=== PATIENT | female | born 1970 | race Caucasian/White ===

== ENCOUNTER → 2022-01-10 | Outpatient (CLI) | payer BC | LOC: LAB 12:52 | DX: Z20.822 Contact with and (suspected) exposure to COVID-19 (principal) ==

== ENCOUNTER → 2024-08-13 | Outpatient (REF) | payer BC ==
[~2024-08-13] MED LIST: GLUCOPHAGE; JANUVIA 100MG100 MG PO; LIPITOR 10M10 MG/TAB; ZESTRIL10 M1
== END ==
LOC: LAB 11:06
DX: R50.9 Fever, unspecified (principal)